=== PATIENT | male | born 1975 | race Caucasian/White ===

== ENCOUNTER 2018-02-12 11:42 | Observation (INO) | payer BC, OTHER ==
[~2018-02-12] VITALS: Ht 172.7 cm; Wt 95.3 kg
--- NOTE | 2018-02-12 11:58 | ED Abdominal Pain ---
General Stated Complaint: ABD PAIN Source of Information: Patient Exam Limitations: No Limitations History of Present Illness Date Seen by Provider: Feb 12, 2018 Time Seen by Provider: 11:55 Initial Comments Sent to ER by private vehicle from urgent care with reports of lower abdominal pain. This began last night at about 8 PM and persisted throughout the night. He has poor appetite but no vomiting. No diarrhea or constipation. No fevers but he does report chills. He denies any dysuria. He states he has a history of left-sided kidney stones which occasionally would cause pain in the left lower abdomen but he states that this pain is actually a bit more midline and in fact on the right side. He is concerned about his appendix. Timing/Duration: 12-24 Hours Severity/Quality: Moderate Location: RLQ, Suprapubic Radiation: No Radiation Activities at Onset: None Allergies and Home Medications Allergies Coded Allergies: No Allergy Information Available (Unverified , 02/12/18) Patient Home Medication List Home Medication List Reviewed: Yes Review of Systems Review of Systems Constitutional: see HPI, chills; No fever EENTM: No Symptoms Reported Respiratory: No Symptoms Reported Cardiovascular: No Symptoms Reported Gastrointestinal: See HPI, Abdominal Pain; Denies Nausea, Denies Vomiting Genitourinary: No Symptoms Reported Musculoskeletal: no symptoms reported Skin: no symptoms reported Psychiatric/Neurological: No Symptoms Reported Endocrine: No Symptoms Reported Physical Exam Vital Signs Vital Signs - First Documented 02/12/18 12:00 Temp 97.4 Pulse 76 Resp 20 B/P (MAP) 142/91 (108) Pulse Ox 97 Capillary Refill : Height/Weight/BMI Height: '" Weight: lbs. oz. kg; BMI Method: General Appearance: WD/WN, no apparent distress HEENT: PERRL/EOMI, normal ENT inspection Neck: non-tender, full range of motion Respiratory: no respiratory distress, no accessory muscle use Cardiovascular: regular rate, rhythm, no murmur Gastrointestinal: normal bowel sounds, soft; No rebound; tenderness ( suprapubic and right lower) Extremities: normal range of motion, non-tender Neurologic/Psychiatric: alert, normal mood/affect, oriented x 3 Skin: normal color, warm/dry Progress/Results/Core Measures Results/Orders Lab Results Laboratory Tests Test 02/12/18 11:57 02/12/18 12:45 Range/Units White Blood Count 19.9 H 4.3-11.0 10^3/uL Red Blood Count 5.24 4.35-5.85 10^6/uL Hemoglobin 15.2 13.3-17.7 G/DL Hematocrit 44 40-54 % Mean Corpuscular Volume 84 80-99 FL Mean Corpuscular Hemoglobin 29 25-34 PG Mean Corpuscular Hemoglobin Concent 34 32-36 G/DL Red Cell Distribution Width 13.3 10.0-14.5 % Platelet Count 328 130-400 10^3/uL Mean Platelet Volume 10.3 7.4-10.4 FL Neutrophils (%) (Auto) 77 H 42-75 % Lymphocytes (%) (Auto) 15 12-44 % Monocytes (%) (Auto) 7 0-12 % Eosinophils (%) (Auto) 1 0-10 % Basophils (%) (Auto) 0 0-10 % Neutrophils # (Auto) 15.3 H 1.8-7.8 X 10^3 Lymphocytes # (Auto) 3.0 1.0-4.0 X 10^3 Monocytes # (Auto) 1.5 H 0.0-1.0 X 10^3 Eosinophils # (Auto) 0.1 0.0-0.3 10^3/uL Basophils # (Auto) 0.1 0.0-0.1 10^3/uL Neutrophils % (Manual) 72 % Lymphocytes % (Manual) 18 % Monocytes % (Manual) 6 % Eosinophils % (Manual) 1 % Basophils % (Manual) 0 % Band Neutrophils 2 % Reactive Lymphocytes 1 % Toxic Granulation 1+ Blood Morphology Comment NORMAL Sodium Level 134 L 135-145 MMOL/L Potassium Level 4.0 3.6-5.0 MMOL/L Chloride Level 101 98-107 MMOL/L Carbon Dioxide Level 23 21-32 MMOL/L Anion Gap 10 5-14 MMOL/L Blood Urea Nitrogen 16 7-18 MG/DL Creatinine 0.97 0.60-1.30 MG/DL Estimat Glomerular Filtration Rate > 60 BUN/Creatinine Ratio 16 Glucose Level 101 70-105 MG/DL Calcium Level 9.1 8.5-10.1 MG/DL Corrected Calcium 8.5-10.1 MG/DL Total Bilirubin 0.8 0.1-1.0 MG/DL Aspartate Amino Transf (AST/SGOT) 20 5-34 U/L Alanine Aminotransferase (ALT/SGPT) 40 0-55 U/L Alkaline Phosphatase 59 40-136 U/L Total Protein 7.9 6.4-8.2 GM/DL Albumin 4.7 H 3.2-4.5 GM/DL Lipase 14 8-78 U/L Urine Color YELLOW Urine Clarity CLEAR Urine pH 5 5-9 Urine Specific [place] 1.015 L 1.016-1.022 Urine Protein NEGATIVE NEGATIVE Urine Glucose (UA) NEGATIVE NEGATIVE Urine Ketones NEGATIVE NEGATIVE Urine Nitrite NEGATIVE NEGATIVE Urine Bilirubin NEGATIVE NEGATIVE Urine Urobilinogen NORMAL NORMAL MG/DL Urine Leukocyte Esterase NEGATIVE NEGATIVE Urine RBC (Auto) NEGATIVE NEGATIVE Urine RBC NONE /HPF Urine WBC NONE /HPF Urine Squamous Epithelial Cells RARE /HPF Urine Crystals NONE /LPF Urine Bacteria NEGATIVE /HPF Urine Casts NONE /LPF Urine Mucus SMALL H /LPF Urine Culture Indicated NO My Orders Orders - ADAM GILLESPIE APRN Cbc With Automated Diff (02/12/18 11:45) Comprehensive Metabolic Panel (02/12/18 11:45) Lipase (02/12/18 11:45) Ua Culture If Indicated (02/12/18 11:45) Iv Heplock-Insert (Order) (02/12/18 11:45) Ct Abdomen/Pelvis W (02/12/18 11:45) Iohexol Injection (Omnipaque 350 Mg/Ml 1 (02/12/18 12:00) Ns (Ivpb) (Sodium Chloride 0.9% Ivpb Bag (02/12/18 12:00) Contrast Received (Contrast Received) (02/12/18 12:00) Fentanyl Injection (Sublimaze Injection (02/12/18 12:00) Manual Differential (02/12/18 11:57) Ns Iv 1000 Ml (Sodium Chloride 0.9%) (02/12/18 12:15) Piperacillin Sodium/Tazobactam (Zosyn Vi (02/12/18 13:00) Ketorolac Injection (Toradol Injection) (02/12/18 13:00) Medications Given in ED Current Medications Medications Dose Ordered Sig/Sherita Route Start Time Stop Time Status Last Admin Dose Admin Fentanyl Citrate 50 mcg ONCE ONCE IVP 02/12/18 12:00 02/12/18 12:01 DC 02/12/18 12:44 50 MCG Iohexol 100 ml ONCE ONCE IV 02/12/18 12:00 02/12/18 12:01 DC 02/12/18 12:28 100 ML Sodium Chloride 100 ml ONCE ONCE IV 02/12/18 12:00 02/12/18 12:01 DC 02/12/18 12:28 80 ML Vital Signs/I&O 02/12/18 12:00 Temp 97.4 Pulse 76 Resp 20 B/P (MAP) 142/91 (108) Pulse Ox 97 Departure Communication (Admissions) Time/Spoke to Admitting Phy: 13:09 Discussed the case with Dr. Zavala. We will admit observation and IV antibiotics and fluids. Impression Primary Impression: Sigmoid diverticulitis Disposition: ADMITTED INPATIENT Condition: Stable Admissions Decision to Admit Reason: Admit from ER (General) Decision to Admit/Date: Feb 12, 2018 Time/Decision to Admit Time: 11:58 Departure-Patient Inst. Referrals: NO,LOCAL PHYSICIAN (PCP) Primary Care Physician ADAM GILLESPIE APRN Feb 12, 2018 11:58
[2018-02-12] MEDS ORDERED: RECEIVED CONTRAST (Hold Metformin) IV SCH (12:00)
[2018-02-12] MEDS ORDERED: NS 100 ML (IVPB) BAG IV ONE (12:00)
[2018-02-12] MEDS ORDERED: IOHEXOL 350 MG/ML 100 ML (OMNIPAQUE 350) VIAL IV ONE (12:00)
[2018-02-12] MEDS ORDERED: fentaNYL INJECTION 100 MCG/2 ML AMP IVP ONE (12:00)
[2018-02-12 12:04] LABS: BASOPHILS # (AUTO) 0.1 10^3/uL (0.0-0.1); BASOPHILS % (AUTO) 0 % (0-10); EOSINOPHILS # (AUTO) 0.1 10^3/uL (0.0-0.3); EOSINOPHILS % (AUTO) 1 % (0-10); HEMATOCRIT 44 % (40-54); HEMOGLOBIN 15.2 G/DL (13.3-17.7); LYMPHOCYTES % (AUTO) 15 % (12-44); MEAN CORPUSCULAR HEMOGLOBIN 29 PG (25-34); MEAN CORPUSCULAR HGB CONC 34 G/DL (32-36); MEAN CORPUSCULAR VOLUME 84 FL (80-99); MEAN PLATELET VOLUME 10.3 FL (7.4-10.4); MONOCYTES # (AUTO) 1.5 X 10^3 (0.0-1.0); MONOCYTES % (AUTO) 7 % (0-12); NEUTROPHILS # (AUTO) 15.3 X 10^3 (1.8-7.8); NEUTROPHILS % (AUTO) 77 % (42-75); PLATELET COUNT 328 10^3/uL (130-400); RED BLOOD COUNT 5.24 10^6/uL (4.35-5.85); RED CELL DISTRIBUTION WIDTH 13.3 % (10.0-14.5); WHITE BLOOD COUNT 19.9 10^3/uL (4.3-11.0)
[2018-02-12] MEDS ORDERED: DEXT30TA12 PO (12:08)
--- OUTSIDE RECORDS SUMMARY | 2018-02-12 12:08 | XMS REPORT ---
Author Author Anum Uribe Organization [facility] Address [address] [place], [place] [id number] Care Team Providers Care Gastroenterology Professor Name Role Phone Anum Uribe PCP Anum Uribe PreferredProvider Allergies and Adverse Reactions Name Reaction Notes NO KNOWN DRUG ALLERGIES Plan of Treatment Not available. Medications Active Name Start Date Estimated Completion Date SIG Comments Adderall 20 mg Oral Tablet 10/28/2017 11/27/2017 take 1 tablet (20 mg) by oral route 2 times per day before breakfast and at noon for 30 days Name Start Date Expiration Date SIG Comments Singulair Oral Tablet 10 mg 08/16/2009 08/30/2009 1 tab BID Ciprofloxacin Oral Tablet 500 mg 08/16/2009 08/23/2009 take 1 tablet (500 mg) by oral route every 12 hours for 7 days amoxicillin 875 mg oral tablet 10/28/2017 11/07/2017 take 1 tablet (875 mg) by oral route every 12 hours for 10 days Discontinued Name Start Date Discontinued Date SIG Comments Adderall XR Oral Capsule, Sust. Release 24 hr 20 mg 05/04/2009 take 1 capsule (20 mg) by oral route once daily in the morning upon awakening Problem List Not available. 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 History Of Immunizations Not available. History of Past Illness Name Date of Onset Comments Attention Deficit Disorder May 04 2009 11:25AM Bronchitis, Acute May 04 2009 11:25AM Cough May 04 2009 11:25AM Sinusitis, Acute Oct 28 2017 9:25AM ADHD (attention deficit hyperactivity disorder), combined type Oct 28 2017 9: 25AM Payers Insurance Name Company Name Plan Name Plan Number Policy Number Policy Group Number Start Date [employer] [id number] N/A [employer] Aetna [id number] Sunday, 2008 History of Encounters Visit Date Visit Type Provider 10/28/2017 Office visit Anum Uribe APRN 05/04/2009 Office visit Ney Willis DO 12/30/2008 Office visit Ney Willis DO
--- OUTSIDE RECORDS SUMMARY | 2018-02-12 12:08 | XMS REPORT | Continuity of Care Document ---
Author Author [facility] Address Unknown Phone Unavailable Allergies There is no data. Medications There is no data. Problems There is no data. Procedures There is no data. Results There is no data. Encounters ACCT No. Visit Date/Time Discharge Status Pt. Type Provider Facility Loc./Unit Complaint [id number] 12/20/2017 10:03:06 12/20/2017 23:59:59 [facility] Outpatient Ney Willis V [id number] 10/28/2017 10:12:51 10/28/2017 23:59:59 [facility] Outpatient Lizabeth Uribe
[2018-02-12] MEDS ORDERED: NS IV 1000 ML 1,000 ML IV SCH (12:15)
[2018-02-12 12:30] LABS: ALANINE AMINOTRANSFERASE 40 U/L (0-55); ALBUMIN 4.7 GM/DL (3.2-4.5); ALKALINE PHOSPHATASE 59 U/L (40-136); BILIRUBIN,TOTAL 0.8 MG/DL (0.1-1.0); BUN/CREATININE RATIO 16; CALCIUM 9.1 MG/DL (8.5-10.1); CARBON DIOXIDE 23 MMOL/L (21-32); CHLORIDE 101 MMOL/L (98-107); CREATININE SERUM 0.97 MG/DL (0.60-1.30); GFR ESTIMATED > 60; GLUCOSE 101 MG/DL (70-105); LIPASE 14 U/L (8-78); SODIUM 134 MMOL/L (135-145); TOTAL PROTEIN 7.9 GM/DL (6.4-8.2)
[2018-02-12 12:37] LABS: BAND NEUTROPHILS 2 %; BASOPHILS % (MANUAL) 0 %; EOSINOPHILS % (MANUAL) 1 %; LYMPHOCYTES % (MANUAL) 18 %; MONOCYTES % (MANUAL) 6 %; NEUTROPHILS % (MANUAL) 72 %; RBC MORPH NORMAL; REACTIVE LYMPHOCYTES 1 %; TOXIC GRANULATION/VACUOLAZATIO 1+
[2018-02-12 12:53] LABS: BILIRUBIN,URINE NEGATIVE (NEGATIVE); CLARITY,URINE CLEAR; COLOR,URINE YELLOW; GLUCOSE, URINE (UA) NEGATIVE (NEGATIVE); KETONES,URINE NEGATIVE (NEGATIVE); LEUKOCYTE ESTERASE ,URINE NEGATIVE (NEGATIVE); NITRITE,URINE NEGATIVE (NEGATIVE); PH,URINE 5 (5-9); PROTEIN,URINE NEGATIVE (NEGATIVE); UROBILINOGEN,URINE NORMAL (NORMAL)
--- NOTE | 2018-02-12 12:59 | Diagnostic Imaging Report ---
PROCEDURE: CT abdomen and pelvis with contrast. TECHNIQUE: Multiple contiguous axial images were obtained through the abdomen and pelvis after administration of intravenous contrast. INDICATION: Pain. FINDINGS: The findings are most consistent with focal sigmoid diverticulitis in the left lower quadrant at the proximal to mid third of the sigmoid colon. There is substantial perisigmoidal edema and regional inflammation but no abscess or drainable fluid collection and no free air or extraluminal gas to suggest a transmural perforation. There is no resultant bowel obstruction. The appendix is normal. No other segmental inflammatory process to the hollow viscus. The liver, gallbladder, spleen, adrenals, pancreas, and kidneys are all nonacute. IMPRESSION: Sigmoid diverticulitis without resultant obstruction, abscess, or findings of transmural perforation. Dictated by: Dictated on workstation # [id number]
[2018-02-12] MEDS ORDERED: KETOROLAC 30 MG/ML VIAL IVP ONE (13:00)
[2018-02-12] MEDS ORDERED: PIPERACILLIN SODIUM/TAZOBACTAM 4.5 GM in NS (IVPB) 100 ML IV ONE (13:00)
[2018-02-12 13:07] LABS: BACTERIA,URINE NEGATIVE /HPF; SQUAMOUS EPITHELIAL CELL,UR RARE /HPF
--- NOTE | 2018-02-12 13:18 | NUR ---
Dr Zavala in room with pt.
--- OUTSIDE RECORDS SUMMARY | 2018-02-12 13:36 | XMS REPORT | Continuity of Care Document ---
Author Author [facility] Address Unknown Phone Unavailable Allergies There is no data. Medications There is no data. Problems There is no data. Procedures There is no data. Results There is no data. Encounters ACCT No. Visit Date/Time Discharge Status Pt. Type Provider Facility Loc./Unit Complaint [id number] 12/20/2017 10:03:06 12/20/2017 23:59:59 [facility] Outpatient Ney Willis V [id number] 10/28/2017 10:12:51 10/28/2017 23:59:59 [facility] Outpatient Lizabeth Uribe
[2018-02-12 13:50] VITALS: BP 137/73
--- NOTE | 2018-02-12 13:54 | NUR ---
KEILY BEARDEN admitted to room 423-1, with an admitting diagnosis of SIGMOID DIVERTICULITIS, on 02/12/18 from ER via W/C, accompanied by BROTHER AND ER STAFF.KEILY BEARDEN introduced to surroundings, call light, bed controls, phone, TV, temperature control, lights, meal times, smoking policy, visitor policy, side rail policy, bathrooms and showers. Patient Rights given to patient in the handbook. KEILY BEARDEN verbalizes understanding that [facility] is not responsible for the loss or damage to any personal effects or valuables that are kept in the patients posession during their hospitalization. The following Patient Care Plans were discussed with the PT: Discharge Planning, DIARRHEA, FOL VOL DEFICIT, AND PAIN. KEILY BEARDEN verbalizes understanding of Interdisciplinary Patient Education. Patient and/or family were informed about the Rapid Response Team and its purpose. PT CAME TO FLOOR FROM ER W/ IV IN R AC
[2018-02-12] MEDS ORDERED: ONDANSETRON 4 MG/2 ML (SDV) Z0FRAN IV PRN (14:00)
[2018-02-12] MEDS ORDERED: CATHETER FLUSH 10 ML SYR IV PRN (14:15)
--- NOTE | 2018-02-12 14:22 | History & Physical-Surgical ---
History of Present Illness History of Present Illness Reason for visit/HPI HPI per ED: Sent to ER by private vehicle from urgent care with reports of lower abdominal pain. This began last night at about 8 PM and persisted throughout the night. He has poor appetite but no vomiting. No diarrhea or constipation. No fevers but he does report chills. He denies any dysuria. He states he has a history of left-sided kidney stones which occasionally would cause pain in the left lower abdomen but he states that this pain is actually a bit more midline and in fact on the right side. He is concerned about his appendix. Timing/Duration: 12-24 Hours Severity/Quality: Moderate Location: RLQ, Suprapubic Radiation: No Radiation Activities at Onset: None Pt states he has never had pain like this before and nothing helped the pain. He describe a constant sharp pain with no radiation of the pain. He stated couldn't get any sleep because of the pain. Date of Admission Feb 12, 2018 at 13:17 Date Seen by a Provider: Feb 12, 2018 Time Seen by a Provider: 13:02 I consulted on this patient on 02/12/18 14:16 Attending Physician Jagjit Zavala DO Admitting Physician No,Local Physician Consult Allergies and Home Medications Allergies Coded Allergies: No Known Drug Allergies (Unverified , 02/12/18) Patient Home Medication List Home Medication List Reviewed: Yes Past Fehfcuw-Pnlreb-Pbpiwn Hx Patient Social History Alcohol Use: Denies Use Recreational Drug Use: No Smoking Status: Never a Smoker Recent Foreign Travel: No Contact w/Someone Who Travel: No Recent Infectious Disease Expo: No Recent Hopitalizations: No Seasonal Allergies Seasonal Allergies: No Surgeries History of Surgeries: Yes (acl repair) Surgeries: Orthopedic Respiratory History of Respiratory Disorde: No Cardiovascular History of Cardiac Disorders: No Neurological History of Neurological Disord: No Genitourinary History of Genitourinary Disor: Yes Genitourinary Disorders: Kidney Stones Gastrointestinal History of Gastrointestinal Di: No Musculoskeletal History of Musculoskeletal Dis: No Endocrine History of Endocrine Disorders: No HEENT History of HEENT Disorders: No Cancer History of Cancer: No Psychosocial History of Psychiatric Problem: No Integumentary History of Skin or Integumenta: No Family Medical History Significant Family History: CAD Under 55 Years Old (brother), Diabetes (mother) Review of Systems Constitutional: No chills, No diaphoresis; malaise EENTM: No blurred vision, No double vision, No mouth swelling, No epistaxis, No throat swelling Respiratory: No cough, No dyspnea on exertion, No hemoptysis Cardiovascular: No chest pain, No edema, No palpitations Gastrointestinal: abdominal pain; No diarrhea, No hematemesis, No jaundice, No melena Genitourinary: No dysuria, No frequency, No hematuria Musculoskeletal: No joint pain, No joint swelling, No muscle pain, No muscle stiffness Skin: No change in color, No change in hair/nails Psychiatric/Neurological: Denies Anxiety, Denies Depressed, Denies Headache, Denies Tremors pt denies any history of abnormal bruising or bleeding, denies heat or cold intolerance Physical Exam Vital Signs Vital Signs - First Documented 02/12/18 12:00 Temp 97.4 Pulse 76 Resp 20 B/P (MAP) 142/91 (108) Pulse Ox 97 Capillary Refill : Less Than 3 Seconds Height, Weight, BMI Height: 5'8.00" Weight: 210lbs. oz. 95.858588mz; BMI Method:Stated General Appearance: WD/WN, Mild Distress Eyes: Bilateral Eye PERRL, Bilateral Eye EOMI HEENT: Pharynx Normal, Moist Mucous Membranes; No Pale Conjunctivae (L), No Pale Conjunctivae (R) Neck: Full Range of Motion, Normal Inspection, Non Tender, Supple Respiratory: Chest Non Tender, Lungs Clear, Normal Breath Sounds, No Accessory Muscle Use, No Respiratory Distress Cardiovascular: Regular Rate, Rhythm, No Edema, No Murmur Gastrointestinal: Normal Bowel Sounds, No Organomegaly, No Pulsatile Mass, Soft , Tenderness (suprapubically) Rectal: Deferred Back: No CVA Tenderness, No Vertebral Tenderness Extremity: Normal Capillary Refill, Normal Inspection, Normal Range of Motion, Non Tender, No Calf Tenderness, No Pedal Edema Neurologic/Psychiatric: Alert, Oriented x3, No Motor/Sensory Deficits, Normal Mood/Affect, economic manager II-XII Norm as Tested Skin: Normal Color, Warm/Dry Lymphatic: No Adenopathy (neck, axilla or groin) Data Review Labs Laboratory Tests 02/12/18 11:57: White Blood Count 19.9H, Red Blood Count 5.24, Hemoglobin 15.2, Hematocrit 44, Mean Corpuscular Volume 84, Mean Corpuscular Hemoglobin 29, Mean Corpuscular Hemoglobin Concent 34, Red Cell Distribution Width 13.3, Platelet Count 328, Mean Platelet Volume 10.3, Neutrophils (%) (Auto) 77H, Lymphocytes (%) (Auto) 15 , Monocytes (%) (Auto) 7, Eosinophils (%) (Auto) 1, Basophils (%) (Auto) 0, Neutrophils # (Auto) 15.3H, Lymphocytes # (Auto) 3.0, Monocytes # (Auto) 1.5H, Eosinophils # (Auto) 0.1, Basophils # (Auto) 0.1, Neutrophils % (Manual) 72, Lymphocytes % (Manual) 18, Monocytes % (Manual) 6, Eosinophils % (Manual) 1, Basophils % (Manual) 0, Band Neutrophils 2, Reactive Lymphocytes 1, Toxic Granulation 1+, Blood Morphology Comment NORMAL, Sodium Level 134L, Potassium Level 4.0, Chloride Level 101, Carbon Dioxide Level 23, Anion Gap 10, Blood Urea Nitrogen 16, Creatinine 0.97, Estimat Glomerular Filtration Rate > 60, BUN/ Creatinine Ratio 16, Glucose Level 101, Calcium Level 9.1, Corrected Calcium , Total Bilirubin 0.8, Aspartate Amino Transf (AST/SGOT) 20, Alanine Aminotransferase (ALT/SGPT) 40, Alkaline Phosphatase 59, Total Protein 7.9, Albumin 4.7H, Lipase 14 02/12/18 12:45: Urine Color YELLOW, Urine Clarity CLEAR, Urine pH 5, Urine Specific [place] 1.015L, Urine Protein NEGATIVE, Urine Glucose (UA) NEGATIVE, Urine Ketones NEGATIVE, Urine Nitrite NEGATIVE, Urine Bilirubin NEGATIVE, Urine Urobilinogen NORMAL, Urine Leukocyte Esterase NEGATIVE, Urine RBC (Auto) NEGATIVE, Urine RBC NONE, Urine WBC NONE, Urine Squamous Epithelial Cells RARE, Urine Crystals NONE , Urine Bacteria NEGATIVE, Urine Casts NONE, Urine Mucus SMALLH, Urine Culture Indicated NO Assessment/Plan Assessment/Plan Admission Diagonsis Acute Sigmoid Diverticulitis Admission Status: Observation Assessment/Plan Acute Sigmoid Diverticulitis Plan is to admit pt for observation, NPO, IV fluids, IV ABX, pain control, anti- emetics and recheck labs. As long as pt's WBC is trending down and pain is improving we can then increase diet and finally send home. I had a long discussion with the pt. and went over normal progression of Diverticulitis, indications for surgery, diet going forward and other aspects of Diverticulitis. All questions answered to his satisfaction. JAGJIT ZAVALA DO Feb 12, 2018 14:22
[2018-02-12] MEDS: LACTATED RINGERS 1,000 ML IV SCH ×2 (14:26→19:57)
[2018-02-12] MEDS ORDERED: IBUP-30 PO (15:15)
[2018-02-12 16:00] VITALS: BP 103/56
[2018-02-12] MEDS: fentaNYL INJECTION 100 MCG/2 ML AMP IV PRN ×3 (16:57→21:59)
[2018-02-12] MEDS: PIPERACILLIN/TAZO 4.5 GM/NS 100 ML IV SCH ×2 (18:27)
[2018-02-12] MEDS: KETOROLAC 15 MG/ML VIAL IV PRN (18:34)
[2018-02-12 20:00] VITALS: BP 112/61
[2018-02-13] VITALS: BP 114/59
[2018-02-13] MEDS: fentaNYL INJECTION 100 MCG/2 ML AMP IV PRN ×3 (00:10→06:04)
[2018-02-13] MEDS: PIPERACILLIN/TAZO 4.5 GM/NS 100 ML IV SCH ×6 (02:09→17:03)
[2018-02-13] MEDS: LACTATED RINGERS 1,000 ML IV SCH ×3 (03:30→16:20)
[2018-02-13 04:00] VITALS: BP 109/61
[2018-02-13 06:30] LABS: BASOPHILS % (AUTO) 0 % (0-10); EOSINOPHILS # (AUTO) 0.1 10^3/uL (0.0-0.3); EOSINOPHILS % (AUTO) 1 % (0-10); HEMATOCRIT 40 % (40-54); HEMOGLOBIN 13.2 G/DL (13.3-17.7); LYMPHOCYTES # (AUTO) 2.4 X 10^3 (1.0-4.0); LYMPHOCYTES % (AUTO) 17 % (12-44); MEAN CORPUSCULAR HEMOGLOBIN 28 PG (25-34); MEAN CORPUSCULAR HGB CONC 33 G/DL (32-36); MEAN CORPUSCULAR VOLUME 85 FL (80-99); MEAN PLATELET VOLUME 10.7 FL (7.4-10.4); MONOCYTES # (AUTO) 1.3 X 10^3 (0.0-1.0); MONOCYTES % (AUTO) 9 % (0-12); NEUTROPHILS # (AUTO) 10.2 X 10^3 (1.8-7.8); NEUTROPHILS % (AUTO) 72 % (42-75); PLATELET COUNT 274 10^3/uL (130-400); RED BLOOD COUNT 4.68 10^6/uL (4.35-5.85); RED CELL DISTRIBUTION WIDTH 13.2 % (10.0-14.5); WHITE BLOOD COUNT 14.1 10^3/uL (4.3-11.0)
[2018-02-13 07:10] LABS: ALANINE AMINOTRANSFERASE 31 U/L (0-55); ALBUMIN 3.8 GM/DL (3.2-4.5); ALKALINE PHOSPHATASE 51 U/L (40-136); BILIRUBIN,TOTAL 1.4 MG/DL (0.1-1.0); BUN/CREATININE RATIO 15; CALCIUM 8.3 MG/DL (8.5-10.1); CARBON DIOXIDE 22 MMOL/L (21-32); CHLORIDE 106 MMOL/L (98-107); CREATININE SERUM 0.93 MG/DL (0.60-1.30); GFR ESTIMATED > 60; GLUCOSE 103 MG/DL (70-105); POTASSIUM 3.8 MMOL/L (3.6-5.0); SODIUM 138 MMOL/L (135-145); TOTAL PROTEIN 6.4 GM/DL (6.4-8.2)
[2018-02-13 08:31] VITALS: BP 114/73
[2018-02-13] MEDS: KETOROLAC 15 MG/ML VIAL IV PRN (08:40)
[2018-02-13 12:00] VITALS: BP 109/74
--- NOTE | 2018-02-13 15:05 | Progress Note ---
Subjective Time Seen by a Provider: 11:26 Subjective/Events-last exam Pt seen and examined, states his pain is better "only a 3 out of 10 now". He is hungry and states he feels better than yesterday. Denies N/V Review of Systems General: No Chills, No Night Sweats Pulmonary: No Dyspnea, No Cough Cardiovascular: No: Chest Pain, Palpitations Gastrointestinal: Abdominal Pain; No: Diarrhea Genitourinary: No Dysuria, No Frequency Objective Exam Vital Signs Date Time Temp Pulse Resp B/P (MAP) Pulse Ox O2 Delivery O2 Flow Rate FiO2 02/13/18 08:31 99.2 72 18 114/73 (87) 96 Room Air 02/13/18 08:00 96 Room Air 02/13/18 04:00 98.3 70 16 109/61 (77) 95 Room Air 02/13/18 00:00 98.8 74 18 114/59 (77) 95 Room Air 02/12/18 20:00 99.0 72 18 112/61 (78) 95 Room Air 02/12/18 17:30 98.5 02/12/18 16:57 98.5 02/12/18 16:00 98.4 73 18 103/56 (72) 96 Room Air 02/12/18 15:04 98.5 72 14 132/76 (94) 96 Room Air I & O 02/13/18 07:00 Intake Total 1200 ml Balance 1200 ml Capillary Refill : Less Than 3 Seconds General Appearance: No Apparent Distress, WD/WN HEENT: Pharynx Normal, Moist Mucous Membranes; No Pale Conjunctivae (L), No Pale Conjunctivae (R) Respiratory: Chest Non Tender, Lungs Clear, Normal Breath Sounds, No Accessory Muscle Use, No Respiratory Distress Cardiovascular: Regular Rate, Rhythm, No Edema, No Murmur Gastrointestinal: normal bowel sounds, soft; No rebound; tenderness ( suprapubic mostlu) Extremity: No Calf Tenderness, No Pedal Edema Neurologic/Psychiatric: Alert, Oriented x3, battery container tester II-XII Norm as Tested Skin: Normal Color, Warm/Dry Lymphatic: No Adenopathy (neck, axilla or groin) Results Lab Laboratory Tests 02/13/18 05:55: White Blood Count 14.1H, Red Blood Count 4.68, Hemoglobin 13.2L, Hematocrit 40, Mean Corpuscular Volume 85, Mean Corpuscular Hemoglobin 28, Mean Corpuscular Hemoglobin Concent 33, Red Cell Distribution Width 13.2, Platelet Count 274, Mean Platelet Volume 10.7H, Neutrophils (%) (Auto) 72, Lymphocytes (%) (Auto) 17 , Monocytes (%) (Auto) 9, Eosinophils (%) (Auto) 1, Basophils (%) (Auto) 0, Neutrophils # (Auto) 10.2H, Lymphocytes # (Auto) 2.4, Monocytes # (Auto) 1.3H, Eosinophils # (Auto) 0.1, Basophils # (Auto) 0.0, Sodium Level 138, Potassium Level 3.8, Chloride Level 106, Carbon Dioxide Level 22, Anion Gap 10, Blood Urea Nitrogen 14, Creatinine 0.93, Estimat Glomerular Filtration Rate > 60, BUN/ Creatinine Ratio 15, Glucose Level 103, Calcium Level 8.3L, Corrected Calcium 8.5, Total Bilirubin 1.4H, Aspartate Amino Transf (AST/SGOT) 19, Alanine Aminotransferase (ALT/SGPT) 31, Alkaline Phosphatase 51, Total Protein 6.4, Albumin 3.8 Assessment/Plan Assessment/Plan Assessment/Plan Acute Sigmoid Diverticulitis Will start clear liquid diet and continue IV fluids, switch to PO ABX. Pt not really taking any pain meds or anti-emetics> The recheck of his labs show a decrease in his WBC. Will send home if he tolerates diet and does not have increased abdominal pain. I did go over the things he would need to do at home and diet to try and avoid another episode like this. We also discussed going early for treatment if he has pain and he can see me if he has any problems. Clinical Quality Measures DVT/VTE Risk/Contraindication: Risk Factor Score Per Nursin RFS Level Per Nursing on Admit: 2=Moderate ALEX OKEEFE DO Feb 13, 2018 15:05
[2018-02-13 16:00] VITALS: BP 107/59
[2018-02-13] MEDS ORDERED: AUGMENTIN 875 MG TAB (AMOXICILLIN/CLAVULANATE) PO SCH (17:00)
[2018-02-13] MEDS ORDERED: AMOX1TAB12 PO (17:40)
--- NOTE | 2018-02-13 17:43 | Discharge Inst-Surgical ---
Discharge Inst-Surgical Depart Medication/Instructions New, Converted or Re-Newed RX: Transmitted to Pharmacy Patient Instructions Follow up Appt: Make appointment for 2-3 weeks; unless you are having no problems. Symptoms to Report: Appetite Changes, Extremity Discoloration, Numbness/Tingling, Swelling Increased , Bleeding Excessive, Eyesight Changes, Pain Increased, Urine Color Change, Constipation(Persistent), Fever over 101 degree F, Pain/Pressure in chest, Urinating Difficulty, Cough Up/Vomit Blood, Heart Beat Irreg/Pounding, Pain/ Pressure in jaw, Cramps in feet or legs, Lightheadedness, Pain/Pressure in shoulder, Diarrhea(Persistent), Memory Changes Suddenly, Questions/Concerns, Weight gain consecutive days, Dizziness/Fainting, Nausea/Vomiting, Shortness of Breath, Weight gain over 2 pounds If questions or concerns contact your physician Or seek help at emergency department. Activity Activity as Tolerated: Yes Driving Instructions: You May Drive Diet Discharge Diet: Liquid Diet (for 2 or 3 days then slowly increase to soft diet. ), Low Residue (and high fiber once eating normally, avoid red meat) If Any Problems/Questions/Issu: Contact Your Physician, Go to Emergency Room Skin/Wound Care Infection Signs and Symptoms: Skin Itchy or Has a Rash, Increased Swelling, Temperature Above 101 F Bathing Instructions: ALEX Mckeon DO Feb 13, 2018 17:43
== END 2018-02-13 18:15 | disposition home or self-care (01) ==
LOC: EDUNIT# 11:42 → ER 11:43 → 4TH 13:17
PROVIDERS: ADMIT Surgery; ATTEND Surgery
DX: K57.32 Diverticulitis of large intestine without perforation or abscess without bleeding (principal); Z87.442 Personal history of urinary calculi
CPT/HCPCS: 36415; 74177; 80053; 81000; 83690; 85007; 85025; 85027; 96374; 96375

== ENCOUNTER → 2020-01-25 | Outpatient (CLI) | payer BC ==
[~2020-01-25] MED LIST: AMOX1TAB12 PO; DEXT30TA12 PO; IBUP-30 PO
--- NOTE | 2020-01-25 16:13 | Diagnostic Imaging Report ---
PROCEDURE: CT abdomen and pelvis without contrast. TECHNIQUE: Multiple contiguous axial images were obtained through the abdomen and pelvis without the use of intravenous contrast. Auto Exposure Controls were utilized during the CT exam to meet ALARA standards for radiation dose reduction. INDICATION: Left lower quadrant pain The previous CT abdomen/pelvis exam of 02/12/2018 noted sigmoid diverticulitis but failed to show any evidence for obstruction abscess or transmural perforation. On this exam there are again numerous diverticula involving the sigmoid and descending colon. However there is no significant distortion of the pericolonic fat to suggest acute diverticulitis. There is no pelvic mass or free fluid collection identified either. The appendix was visualized and is not abnormally thickened. The urinary bladder and prostate gland are grossly unremarkable. There is no sign of nephrolithiasis or urolithiasis and the kidneys do not appear obstructed. The liver, spleen, pancreas, adrenals, gallbladder, aorta and inferior vena cava show no sign of an acute abnormality. The stomach is partially filled with fluid and consequently difficult to assess. The lung bases are clear. IMPRESSION: 1. There is diverticulosis of the sigmoid and descending colon but there is no evidence for recurrent diverticulitis. 2. There is no acute abnormality of the abdomen or pelvis noted otherwise. Dictated by: Dictated on workstation # [id number]
== END ==
LOC: RAD 13:45
PROVIDERS: ATTEND Urology
DX: K57.30 Diverticulosis of large intestine without perforation or abscess without bleeding (principal); Z87.442 Personal history of urinary calculi
CPT/HCPCS: 74176

== ENCOUNTER → 2020-11-18 | Outpatient (CLI) | payer BC ==
--- NOTE | 2020-11-18 15:44 | Diagnostic Imaging Report ---
TECHNIQUE: Focused ultrasound was performed in the soft tissues overlying the posterior calvarium. REASON FOR EXAM: Lung at the base of the skull on the right. COMPARISON: None. FINDINGS: A well-circumscribed isoechoic mass is seen in the area of palpable abnormality at the skull base right of midline measuring 4.2 x 1.3 x 3.4 cm. No flow is seen within this mass. IMPRESSION: Well-circumscribed benign-appearing mass in the area of palpable abnormality at the skull base right of midline. Findings may represent a lipoma. If indicated, CT of the neck could be considered to further characterize. Dictated by: Dictated on workstation # [id number]
== END ==
LOC: RAD 14:30
PROVIDERS: ATTEND Nurse Practitioner Family
DX: R93.0 Abnormal findings on diagnostic imaging of skull and head, not elsewhere classified (principal)
CPT/HCPCS: 76536

== ENCOUNTER 2021-03-10 23:36 | Emergency (ER) | payer BC ==
[~2021-03-10] VITALS: Ht 172.7 cm; Wt 95.3 kg
[2021-03-10 23:50] VITALS: BP 117/82
[2021-03-11] MEDS ORDERED: fentaNYL INJ 100 MCG/2 ML AMP IVP ONE (00:15)
[2021-03-11 00:24] LABS: BASOPHILS # (AUTO) 0.1 10^3/uL (0.0-0.1); BASOPHILS % (AUTO) 1 % (0-10); EOSINOPHILS # (AUTO) 0.3 10^3/uL (0.0-0.3); EOSINOPHILS % (AUTO) 1 % (0-10); HEMATOCRIT 44 % (40-54); HEMOGLOBIN 14.8 g/dL (13.3-17.7); LYMPHOCYTES # (AUTO) 5.4 10^3/uL (1.0-4.0); LYMPHOCYTES % (AUTO) 28 % (12-44); MEAN CORPUSCULAR HEMOGLOBIN 29 pg (25-34); MEAN CORPUSCULAR HGB CONC 34 g/dL (32-36); MEAN CORPUSCULAR VOLUME 87 fL (80-99); MEAN PLATELET VOLUME 10.6 fL (9.0-12.2); MONOCYTES # (AUTO) 1.3 10^3/uL (0.0-1.0); MONOCYTES % (AUTO) 7 % (0-12); NEUTROPHILS # (AUTO) 11.8 10^3/uL (1.8-7.8); NEUTROPHILS % (AUTO) 61 % (42-75); PLATELET COUNT 388 10^3/uL (130-400); WHITE BLOOD COUNT 19.3 10^3/uL (4.3-11.0)
[2021-03-11] MEDS ORDERED: LACTATED RINGERS 1,000 ML IV ONE (00:30)
--- NOTE | 2021-03-11 00:34 | ED Abdominal Pain ---
General Chief Complaint: Abdominal/GI Problems Stated Complaint: LEFT SIDE ABD PAIN Nursing Triage Note: Pt arrives via POV from home for c/o left sided ABD pain et flank pain; onset 24hrs ago. Pt reports hx of kidney stones et diverticulitis. Pt denies urinary changes, denies N/V. Source of Information: Patient Exam Limitations: No Limitations History of Present Illness Date Seen by Provider: Mar 11, 2021 Time Seen by Provider: 00:17 Initial Comments Patient to the ER by private conveyance chief complaint since yesterday he has been having some progressively worsening left flank pain. He has had diverticulitis as well as kidney stones in the past. He states this feels nothing like a kidney stone. Pain is moderate. He has not taken any pain medicine and was just been getting through it at work but decided the pain was too great to get to sleep tonight and so he thought he should come out and get it checked out. He had a bowel movement just prior to coming out a few hours ago and said it was normal, formed, nonbloody. No nausea or vomiting. No abdominal surgeries or trauma. A little bit of a sore throat. No dysuria pyuria hematuria or discharge Allergies and Home Medications Allergies Coded Allergies: No Known Drug Allergies (Unverified , 02/12/18) Patient Home Medication List Home Medication List Reviewed: Yes Amoxicillin/Potassium Clav (Amox Tr-K Clv 875-125 mg Tab) 1 Each Tablet, 875 MG PO BID WITH MEALS Prescribed by: ALEX OKEEFE on 02/13/18 1740 Dextroamphetamine/Amphetamine (Amphetamine Salts 30 mg Tablet) 30 Mg Tablet, 30 MG PO BID PRN for ATTENTION, (Reported) Entered as Reported by: SAMAN LANGFORD on 02/12/18 1208 Ibuprofen (Advil) 200 Mg Tablet, 400 MG PO Q8H PRN for PAIN-MILD, (Reported) Entered as Reported by: TOR RIDDLE on 02/12/18 1515 Review of Systems Review of Systems Constitutional: No chills, No diaphoresis EENTM: No Blurred Vision, No Double Vision Respiratory: Denies Cough, Denies Orthopnea Cardiovascular: Denies Chest Pain, Denies Lightheadedness Gastrointestinal: Abdominal Pain; Denies Constipated, Denies Diarrhea, Denies Nausea, Denies Vomiting Genitourinary: Denies Burning, Denies Discharge, Denies Drainage, Denies Frequency; Flank Pain Musculoskeletal: No back pain, No joint pain Psychiatric/Neurological: Denies Anxiety, Denies Depressed All Other Systems Reviewed Negative Unless Noted: Yes Past Ativcfg-Oegxbu-Nupfte Hx Patient Social History Tobacco Use?: No Use of E-Cig and/or Vaping dev: No Substance use?: No Alcohol Use?: No Pt feels they are or have been: No Immunizations Up To Date Influenza Vaccine Up-to-Date: Yes; Up-to-Date Seasonal Allergies Seasonal Allergies: No Past Medical History Surgeries: Yes (acl repair) Orthopedic Respiratory: No Cardiac: No Neurological: No Genitourinary: Yes Kidney Stones Gastrointestinal: No Musculoskeletal: No Endocrine: No HEENT: No Cancer: No Psychosocial: No Integumentary: No Family Medical History CAD Under 55 Years Old, Diabetes Physical Exam Vital Signs Vital Signs - First Documented 03/10/21 23:50 Temp 36.8 Pulse 73 Resp 18 B/P (MAP) 117/82 (94) Pulse Ox 98 O2 Delivery Room Air Capillary Refill : Less Than 3 Seconds Height/Weight/BMI Height: 5'8.00" Weight: 210lbs. 0.0oz. 95.638234nt; 31.00 BMI Method:Stated General Appearance: WD/WN, no apparent distress HEENT: PERRL/EOMI, normal ENT inspection, pharynx normal Neck: full range of motion, supple, normal inspection Respiratory: lungs clear, normal breath sounds, no respiratory distress, no accessory muscle use Cardiovascular: normal peripheral pulses, regular rate, rhythm, no murmur Peripheral Pulses: 2+ Radial Pulses (R), 2+ Radial Pulses (L) Gastrointestinal: normal bowel sounds, non tender, soft, no organomegaly, no pulsatile mass, tenderness (Left flank) Extremities: normal inspection, normal capillary refill Back: normal inspection, no CVA tenderness Neurologic/Psychiatric: alert, normal mood/affect, oriented x 3 Skin: normal color, warm/dry Progress/Results/Core Measures Results/Orders Lab Results Laboratory Tests Test 03/11/21 00:00 03/11/21 01:20 Range/Units White Blood Count 19.3 H 4.3-11.0 10^3/uL Red Blood Count 5.07 4.30-5.52 10^6/uL Hemoglobin 14.8 13.3-17.7 g/dL Hematocrit 44 40-54 % Mean Corpuscular Volume 87 80-99 fL Mean Corpuscular Hemoglobin 29 25-34 pg Mean Corpuscular Hemoglobin Concent 34 32-36 g/dL Red Cell Distribution Width 12.6 10.0-14.5 % Platelet Count 388 130-400 10^3/uL Mean Platelet Volume 10.6 9.0-12.2 fL Immature Granulocyte % (Auto) 2 % Neutrophils (%) (Auto) 61 42-75 % Lymphocytes (%) (Auto) 28 12-44 % Monocytes (%) (Auto) 7 0-12 % Eosinophils (%) (Auto) 1 0-10 % Basophils (%) (Auto) 1 0-10 % Neutrophils # (Auto) 11.8 H 1.8-7.8 10^3/uL Lymphocytes # (Auto) 5.4 H 1.0-4.0 10^3/uL Monocytes # (Auto) 1.3 H 0.0-1.0 10^3/uL Eosinophils # (Auto) 0.3 0.0-0.3 10^3/uL Basophils # (Auto) 0.1 0.0-0.1 10^3/uL Immature Granulocyte # (Auto) 0.4 H 0.0-0.1 10^3/uL Neutrophils % (Manual) 71 % Lymphocytes % (Manual) 23 % Monocytes % (Manual) 5 % Eosinophils % (Manual) 1 % Sodium Level 136 135-145 MMOL/L Potassium Level 3.8 3.6-5.0 MMOL/L Chloride Level 104 98-107 MMOL/L Carbon Dioxide Level 18 L 21-32 MMOL/L Anion Gap 14 5-14 MMOL/L Blood Urea Nitrogen 27 H 7-18 MG/DL Creatinine 0.92 0.60-1.30 MG/DL Estimat Glomerular Filtration Rate 104 BUN/Creatinine Ratio 29 Glucose Level 103 70-105 MG/DL Calcium Level 8.7 8.5-10.1 MG/DL Corrected Calcium 8.8 8.5-10.1 MG/DL Total Bilirubin 0.3 0.1-1.0 MG/DL Aspartate Amino Transf (AST/SGOT) 23 5-34 U/L Alanine Aminotransferase (ALT/SGPT) 41 0-55 U/L Alkaline Phosphatase 62 40-136 U/L C-Reactive Protein High Sensitivity 2.35 H 0.00-0.50 MG/DL Total Protein 7.5 6.4-8.2 GM/DL Albumin 3.9 3.2-4.5 GM/DL Lipase 32 8-78 U/L Monoscreen NEGATIVE NEGATIVE Urine Color YELLOW Urine Clarity CLEAR Urine pH 6.0 5-9 Urine Specific [place] >=1.030 1.016-1.022 Urine Protein NEGATIVE NEGATIVE Urine Glucose (UA) NEGATIVE NEGATIVE Urine Ketones NEGATIVE NEGATIVE Urine Nitrite NEGATIVE NEGATIVE Urine Bilirubin NEGATIVE NEGATIVE Urine Urobilinogen 0.2 < = 1.0 MG/DL Urine Leukocyte Esterase NEGATIVE NEGATIVE Urine RBC (Auto) NEGATIVE NEGATIVE Urine RBC NONE /HPF Urine WBC NONE /HPF Urine Crystals NONE /LPF Urine Bacteria NEGATIVE /HPF Urine Casts NONE /LPF Urine Mucus NEGATIVE /LPF Urine Culture Indicated NO My Orders Orders - MEAGAN HDEZ Ua Culture If Indicated (03/10/21 23:55) Fentanyl Inj (Sublimaze Injection) (03/11/21 00:15) Cbc With Automated Diff (03/11/21 00:12) Comprehensive Metabolic Panel (03/11/21 00:12) Hs C Reactive Protein (03/11/21 00:12) Lipase (03/11/21 00:12) Ed Iv/Invasive Line Start (03/11/21 00:18) Lactated Ringers (Lr 1000 Ml Iv Solution (03/11/21 00:30) Manual Differential (03/11/21 00:00) Monotest (03/11/21 00:39) Medications Given in ED Current Medications Medications Dose Ordered Sig/Sherita Route Start Time Stop Time Status Last Admin Dose Admin Fentanyl Citrate 50 mcg ONCE ONCE IVP 03/11/21 00:15 03/11/21 00:16 DC 03/11/21 00:35 50 MCG Lactated Ringer's 1,000 ml @ 0 mls/hr Q0M ONCE IV 03/11/21 00:30 03/11/21 00:31 DC 03/11/21 00:35 1,000 MLS/HR Vital Signs/I&O 03/10/21 23:50 Temp 36.8 Pulse 73 Resp 18 B/P (MAP) 117/82 (94) Pulse Ox 98 O2 Delivery Room Air 2 Blood Pressure Mean: 94 Progress Progress Note #1: Time: 00:44 Progress Note Patient does not seem to be in acute enough pain to be experiencing a kidney stone. UTI pyelonephritis possibly still get some urine. We will get some labs. He has aseptic vital signs. We will little pain medicine 50 mcg of fentanyl. His abdomen is soft nontender with no mesenteric signs. Diverticulitis is possible but is probably pretty mild and if his blood work is unremarkable, vitals are unremarkable and clinical exam remains unremarkable we could probably is put him on some antibiotics and have him follow-up outpatient. Progress Note #2: Time: 02:02 Progress Note Patient did produce some urine which was unremarkable. Most likely he is having another bout of diverticulitis albeit mild symptoms with an aseptic vital signs, nonsurgical abdominal exam on reexamination. We discussed outpatient treatment and he is all for this. We will provide him with a gram of Rocephin, outpatient antibiotics, take-home pack of hydrocodone and a shot of Toradol. Departure Impression Primary Impression: Diverticulitis of intestine Qualified Codes: K57.92 - Diverticulitis of intestine, part unspecified, w ithout perforation or abscess without bleeding Disposition: HOME, SELF-CARE Condition: Stable Departure-Patient Inst. Decision time for Depature: 02:04 Referrals: ARMANI GODINEZ APRN (PCP/Family) Primary Care Physician Patient Instructions: Diverticulitis (DC) Add. Discharge Instructions: Tylenol 650 mg every 8 hours necessary for pain. Ibuprofen 600 mg every 8 hours necessary for pain. Hydrocodone 1 tablet every 6 hours necessary for breakthrough pain. Drink plenty of fluids and avoid spicy foods, greasy foods. Kinney diet such as bananas, rice, applesauce and toast. Ondansetron 1 tablet under the tongue every 6 hours as necessary for nausea and or vomiting. Flagyl 1 tablet 3 times a day with food for the next week. Ciprofloxacin 1 tablet twice a day with food for the next week. Return to the ER for significantly worsening symptoms or follow-up with your [facility] doctor as necessary to help manage symptoms outpatient. All discharge instructions reviewed with patient and/or family. Voiced understanding. Scripts Hydrocodone/Acetaminophen (Hydrocodone-Acetamin 5-325 mg) 1 Each Tablet 1 TAB PO Q6H PRN for PAIN-MODERATE (5-7), #12 TAB 0 Refills Prov: MEAGAN HDEZ 03/11/21 Metronidazole (Metronidazole) 500 Mg Tablet 500 MG PO TIDWM for 7 Days, #21 TAB 0 Refills Prov: MEAGAN HDEZ 03/11/21 Ciprofloxacin HCl (Ciprofloxacin HCl) 500 Mg Tablet 500 MG PO BID for 7 Days, #14 TAB 0 Refills Prov: MEAGAN HDEZ 03/11/21 Ondansetron (Ondansetron Odt) 4 Mg Tab.rapdis 4 MG PO Q6H PRN for NAUSEA/VOMITING, #12 TAB 0 Refills Prov: MEAGAN HDEZ 03/11/21 MEAGAN HDEZ Mar 11, 2021 00:34
[2021-03-11 00:58] LABS: ALBUMIN 3.9 GM/DL (3.2-4.5); BILIRUBIN,TOTAL 0.3 MG/DL (0.1-1.0); CALCIUM 8.7 MG/DL (8.5-10.1); CREATININE SERUM 0.92 MG/DL (0.60-1.30); POTASSIUM 3.8 MMOL/L (3.6-5.0); TOTAL PROTEIN 7.5 GM/DL (6.4-8.2)
[2021-03-11 01:05] LABS: LYMPHOCYTES % (MANUAL) 23 %; NEUTROPHILS % (MANUAL) 71 %
[2021-03-11 01:06] LABS: EOSINOPHILS % (MANUAL) 1 %; MONOCYTES % (MANUAL) 5 %
[2021-03-11 01:25] LABS: BILIRUBIN,URINE NEGATIVE (NEGATIVE); CLARITY,URINE CLEAR; COLOR,URINE YELLOW; GLUCOSE, URINE (UA) NEGATIVE (NEGATIVE); KETONES,URINE NEGATIVE (NEGATIVE); LEUKOCYTE ESTERASE ,URINE NEGATIVE (NEGATIVE); NITRITE,URINE NEGATIVE (NEGATIVE); PROTEIN,URINE NEGATIVE (NEGATIVE)
[2021-03-11 01:36] LABS: BACTERIA,URINE NEGATIVE /HPF
[2021-03-11] MEDS ORDERED: KETOROLAC 30 MG/ML VIAL IVP ONE (02:00)
[2021-03-11] MEDS ORDERED: cefTRIAXone 1 GM PRE-MIX 50 ML IV ONE (02:00)
[2021-03-11] MEDS ORDERED: CIPR500T5 PO (02:08)
[2021-03-11] MEDS ORDERED: ACHD5005 PO (02:08)
[2021-03-11] MEDS ORDERED: METR-145 PO (02:08)
[2021-03-11] MEDS ORDERED: ONDA4TAB11 PO (02:08)
== END 2021-03-11 02:48 | disposition home or self-care (01) ==
LOC: EDUNIT# 23:36 → ER 23:41
DX: K57.92 Diverticulitis of intestine, part unspecified, without perforation or abscess without bleeding (principal); Z87.442 Personal history of urinary calculi
CPT/HCPCS: 36415; 80053; 81000; 83690; 85007; 85027; 86141; 86308

== ENCOUNTER 2021-03-12 04:07 | Emergency (ER) | payer BC ==
[~2021-03-12] VITALS: Ht 177 cm; Wt 100.0 kg
[~2021-03-12 04:07] MED LIST changes: +ACHD5005 PO; +CIPR500T5 PO; +METR-145 PO; +ONDA4TAB11 PO
[2021-03-12] MEDS ORDERED: morphine INJ 10 MG/ML 1ML (SYR OR VIAL) IVP STA (04:52)
--- NOTE | 2021-03-12 04:58 | ED Abdominal Pain ---
General Chief Complaint: Abdominal/GI Problems Stated Complaint: L SIDE ABD PAIN Source of Information: Patient Exam Limitations: No Limitations (MEAGAN HDEZ) History of Present Illness Date Seen by Provider: Mar 12, 2021 Time Seen by Provider: 04:46 Initial Comments Patient to the ER by private conveyance from home with chief complaint of left- sided abdominal and flank pain history of diverticulitis and kidney stones. States the pain is unlike kidney stone pain. No diarrhea or bloody stools. No nausea or vomiting. He went home yesterday after an examination with ant ibiotics and hydrocodone but did not go to the pharmacy and apple picker the antibiotics or the pain medications and now states his pain is out of control. He has not taken anything for the pain after the 4 tablets of take-home hydrocodone were used. He is concerned that the diagnosis is missed and would like a CT scan of his abdomen and pelvis now. (MEAGAN HDEZ) Allergies and Home Medications Allergies Coded Allergies: No Known Drug Allergies (Unverified , 02/12/18) Patient Home Medication List Home Medication List Reviewed: Yes (MEAGAN HDEZ) Amoxicillin/Potassium Clav (Amox Tr-K Clv 875-125 mg Tab) 1 Each Tablet, 875 MG PO BID WITH MEALS Prescribed by: ALEX OKEEFE on 02/13/18 1740 Ciprofloxacin HCl (Ciprofloxacin HCl) 500 Mg Tablet, 500 MG PO BID Prescribed by: MEAGAN HDEZ on 03/11/21207 Dextroamphetamine/Amphetamine (Amphetamine Salts 30 mg Tablet) 30 Mg Tablet, 30 MG PO BID PRN for ATTENTION, (Reported) Entered as Reported by: SAMAN LANGFORD on 02/12/18 1208 Hydrocodone/Acetaminophen (Hydrocodone-Acetamin 5-325 mg) 1 Each Tablet, 1 TAB PO Q6H PRN for PAIN-MODERATE (5-7) Prescribed by: MEAGAN HDEZ on 03/11/21 020 Ibuprofen (Advil) 200 Mg Tablet, 400 MG PO Q8H PRN for PAIN-MILD, (Reported) Entered as Reported by: TOR RIDDLE on 02/12/18 1515 Metronidazole (Metronidazole) 500 Mg Tablet, 500 MG PO TIDWM Prescribed by: MEAGAN HDEZ on 03/11/21207 Ondansetron (Ondansetron Odt) 4 Mg Tab.rapdis, 4 MG PO Q6H PRN for LAURI SEA/VOMITING Prescribed by: MEAGAN HDEZ on 03/11/21 0208 Review of Systems Review of Systems Constitutional: No chills, No diaphoresis EENTM: No Blurred Vision, No Double Vision Respiratory: Denies Cough, Denies Shortness of Air Cardiovascular: Denies Chest Pain, Denies Edema Gastrointestinal: See HPI, Abdominal Pain; Denies Constipated, Denies Diarrhea, Denies Nausea Genitourinary: Denies Burning, Denies Discharge Musculoskeletal: No back pain, No joint pain Skin: No pruritus, No rash Psychiatric/Neurological: Denies Headache, Denies Numbness, Denies Paresthesia (MEAGAN HDEZ) All Other Systems Reviewed Negative Unless Noted: Yes (MEAGAN HDEZ) Past Ckwxrtj-Rqoanv-Pudsbl Hx Patient Social History Tobacco Use?: No Use of E-Cig and/or Vaping dev: No (MEAGAN HDEZ) Seasonal Allergies Seasonal Allergies: No (MEAGAN HDEZ) Past Medical History Surgeries: Yes (acl repair) Orthopedic Respiratory: No Cardiac: No Neurological: No Genitourinary: Yes Kidney Stones Gastrointestinal: No Musculoskeletal: No Endocrine: No HEENT: No Cancer: No Psychosocial: No Integumentary: No (MEAGAN HDEZ) Family Medical History CAD Under 55 Years Old, Diabetes (MEAGAN HDEZ) Physical Exam Vital Signs Vital Signs - First Documented 03/12/21 04:08 Pulse 86 Resp 16 B/P (MAP) 121/72 (88) Pulse Ox 98 O2 Delivery Room Air (MILO ZULETA MD) Vital Signs Capillary Refill : (MEAGAN HDEZ) Height/Weight/BMI Height: 5'8.00" Weight: 210lbs. 0.0oz. 95.756761vc; 31.00 BMI Method:Stated General Appearance: WD/WN, no apparent distress HEENT: normal ENT inspection, pharynx normal Neck: full range of motion, normal inspection Respiratory: no respiratory distress, no accessory muscle use Cardiovascular: normal peripheral pulses, regular rate, rhythm Peripheral Pulses: 2+ Radial Pulses (R), 2+ Radial Pulses (L) Gastrointestinal: normal bowel sounds, soft, tenderness (Left upper quadrant left flank) Neurologic/Psychiatric: alert, normal mood/affect, oriented x 3 Skin: normal color, warm/dry (MEAGAN HDEZ) Progress/Results/Core Measures Results/Orders Lab Results Laboratory Tests Test 03/12/21 04:35 Range/Units White Blood Count 18.4 H 4.3-11.0 10^3/uL Red Blood Count 5.00 4.30-5.52 10^6/uL Hemoglobin 14.4 13.3-17.7 g/dL Hematocrit 43 40-54 % Mean Corpuscular Volume 86 80-99 fL Mean Corpuscular Hemoglobin 29 25-34 pg Mean Corpuscular Hemoglobin Concent 33 32-36 g/dL Red Cell Distribution Width 12.3 10.0-14.5 % Platelet Count 363 130-400 10^3/uL Mean Platelet Volume 10.6 9.0-12.2 fL Immature Granulocyte % (Auto) 1 % Neutrophils (%) (Auto) 67 42-75 % Lymphocytes (%) (Auto) 22 12-44 % Monocytes (%) (Auto) 7 0-12 % Eosinophils (%) (Auto) 2 0-10 % Basophils (%) (Auto) 0 0-10 % Neutrophils # (Auto) 12.4 H 1.8-7.8 10^3/uL Lymphocytes # (Auto) 4.0 1.0-4.0 10^3/uL Monocytes # (Auto) 1.4 H 0.0-1.0 10^3/uL Eosinophils # (Auto) 0.3 0.0-0.3 10^3/uL Basophils # (Auto) 0.0 0.0-0.1 10^3/uL Immature Granulocyte # (Auto) 0.3 H 0.0-0.1 10^3/uL Neutrophils % (Manual) 63 % Lymphocytes % (Manual) 25 % Monocytes % (Manual) 10 % Eosinophils % (Manual) 2 % Blood Morphology Comment NORMAL Sodium Level 136 135-145 MMOL/L Potassium Level 4.0 3.6-5.0 MMOL/L Chloride Level 104 98-107 MMOL/L Carbon Dioxide Level 19 L 21-32 MMOL/L Anion Gap 13 5-14 MMOL/L Blood Urea Nitrogen 15 7-18 MG/DL Creatinine 0.80 0.60-1.30 MG/DL Estimat Glomerular Filtration Rate 111 BUN/Creatinine Ratio 19 Glucose Level 113 H 70-105 MG/DL Calcium Level 8.6 8.5-10.1 MG/DL Corrected Calcium 8.8 8.5-10.1 MG/DL Total Bilirubin 0.5 0.1-1.0 MG/DL Aspartate Amino Transf (AST/SGOT) 17 5-34 U/L Alanine Aminotransferase (ALT/SGPT) 35 0-55 U/L Alkaline Phosphatase 59 40-136 U/L C-Reactive Protein High Sensitivity 8.55 H 0.00-0.50 MG/DL Total Protein 6.8 6.4-8.2 GM/DL Albumin 3.7 3.2-4.5 GM/DL (MILO ZULETA MD) My Orders Orders - MILO ZULETA MD Ketorolac Injection (Toradol Injection) (03/12/21 07:45) Hydrocodone/Apap 5/325 Tablet (Lortab 5 (03/12/21 07:45) (MILO ZULETA MD) Medications Given in ED Current Medications Medications Dose Ordered Sig/Sherita Route Start Time Stop Time Status Last Admin Dose Admin Diatrizoate Meglum/ Diatrizoate Sod 120 ml ONCE ONCE PO 03/12/21 07:30 03/12/21 07:31 DC 03/12/21 07:18 25 ML Iohexol 100 ml ONCE ONCE IV 03/12/21 07:15 03/12/21 07:16 DC 03/12/21 07:18 100 ML Lactated Ringer's 1,000 ml @ 0 mls/hr Q0M ONCE IV 03/12/21 05:00 03/12/21 05:01 DC 03/12/21 05:14 0 MLS/HR Sodium Chloride 10 ml NEEDED PRN IV 03/12/21 07:15 03/12/21 07:18 10 ML Sodium Chloride 100 ml ONCE ONCE IV 03/12/21 07:15 03/12/21 07:16 DC 03/12/21 07:18 80 ML (MILO ZULETA MD) Vital Signs/I&O 03/12/21 04:08 Pulse 86 Resp 16 B/P (MAP) 121/72 (88) Pulse Ox 98 O2 Delivery Room Air (MILO ZULETA MD) Progress Progress Note : Time: 04:57 Progress Note Aseptic vital signs. He did receive Rocephin yesterday. We will get a CT of the abdomen and pelvis with IV contrast and oral contrast. Liter of fluids and morphine. (MEAGAN HDEZ) Progress Note : Progress Note Received the patient in signout pending CT. This showed acute uncomplicated diverticulitis. The patient received IV Toradol for pain control followed by an oral hydrocodone. Reassessed his abdominal exam and he continued to show no signs of peritonitis. I believe he is stable for discharge with outpatient follow-up. He was sent home with strict return precautions. I urged him to fill the prescriptions that were sent when he came to the emergency department previously. (MILO ZULETA MD) Diagnostic Imaging Diagonstic Imaging: CT Plain Films/CT/US/NM/MRI: abdomen, pelvis Comments [facility]. [place], [place] NAME: KEILY BEARDEN [facility] REC#: [id number] PT STATUS: DEP ER : 1975 PHYSICIAN: MEAGAN HDEZ MD ADMIT DATE: 03/12/21/ER Signed Date of Exam:03/12/21 CT ABDOMEN/PELVIS W PROCEDURE: CT abdomen and pelvis with contrast. TECHNIQUE: Multiple contiguous axial images were obtained through the abdomen and pelvis after administration of intravenous contrast. Auto Exposure Controls were utilized during the CT exam to meet ALARA standards for radiation dose reduction. All CT scans use one or more of the following dose optimizing techniques: automated exposure control, MA and/or KvP adjustment based on patient size and exam type or iterative reconstruction. Indication: Left lower quadrant pain for 3 days. Comparison: 01/25/2020. Discussion: The lung bases are well-aerated. Normal heart size. No pleural or pericardial fluid. The liver, gallbladder, pancreas, stomach, spleen, and adrenal glands are unremarkable. No renal stone, mass, hydronephrosis. The aorta is normal in caliber. Inflammatory changes noted along the descending colon in the setting of diverticular disease suggesting acute diverticulitis. There is no abscess or perforation identified. No obstruction or constipation. The appendix is normal. Bladder and prostate are unremarkable. No ascites or adenopathy. No acute osseous abnormality. Impression: 1. Acute uncomplicated diverticulitis of the descending colon. Dictated by: Dictated on workstation # [id number] Dict: 03/12/21725 Trans: 03/12/211511 MARIFER [id number] Interpreted by: KEILY LEVINE MD Electronically signed by: KEILY LEVINE MD 03/12/211511 Reviewed: Reviewed [place] Study, Reviewed by Me (MEAGAN HDEZ) Comments NAME: KEILY BEARDEN [facility] REC#: [id number] PT STATUS: REG ER : 1975 PHYSICIAN: MEAGAN HDEZ MD ADMIT DATE: 03/12/21/ER Draft Date of Exam:03/12/21 CT ABDOMEN/PELVIS W PROCEDURE: CT abdomen and pelvis with contrast. TECHNIQUE: Multiple contiguous axial images were obtained through the abdomen and pelvis after administration of intravenous contrast. Auto Exposure Controls were utilized during the CT exam to meet ALARA standards for radiation dose reduction. All CT scans use one or more of the following dose optimizing techniques: automated exposure control, MA and/or KvP adjustment based on patient size and exam type or iterative reconstruction. Indication: Left lower quadrant pain for 3 days. Comparison: 01/25/2020. Discussion: The lung bases are well-aerated. Normal heart size. No pleural or pericardial fluid. The liver, gallbladder, pancreas, stomach, spleen, and adrenal glands are unremarkable. No renal stone, mass, hydronephrosis. The aorta is normal in caliber. Inflammatory changes noted along the descending colon in the setting of diverticular disease suggesting acute diverticulitis. There is no abscess or perforation identified. No obstruction or constipation. The appendix is normal. Bladder and prostate are unremarkable. No ascites or adenopathy. No acute osseous abnormality. Impression: 1. Acute uncomplicated diverticulitis of the descending colon. Dictated on workstation # [id number] Dict: 03/12/21725 Trans: 03/12/21738 MARIFER [id number] Interpreted by: KEILY LEVINE MD Electronically signed by: (MILO ZULETA MD) Departure Impression Primary Impression: Diverticulitis Disposition: HOME, SELF-CARE Condition: Stable Departure-Patient Inst. Decision time for Depature: 07:45 (MILO ZULETA MD) Referrals: ARMANI GODINEZ APRN (PCP/Family) Primary Care Physician Patient Instructions: Diverticulitis Add. Discharge Instructions: You do have what is called uncomplicated diverticulitis. This just means that currently it is a small infection of your diverticula. If you take the antibiotics that were written for you, this should get better with time. Also take the pain medicine that were prescribed to the last and he came to the emergency department. You can take ibuprofen 600 mg every 6 hours on top of this. After 24 hours of being on the antibiotics if you develop fever, or the pain becomes much worse then I would want you to be seen again by a physician. Work/School Note: Work Release Form Date Seen in the Emergency Department: Mar 12, 2021 Return to Work: Mar 14, 2021 Restrictions: No Restrictions MEAGAN HDEZ Mar 12, 2021 04:58 MILO ZULETA MD Mar 12, 2021 07:47
[2021-03-12] MEDS ORDERED: LACTATED RINGERS 1,000 ML IV ONE (05:00)
[2021-03-12 05:01] LABS: BASOPHILS % (AUTO) 0 % (0-10); EOSINOPHILS # (AUTO) 0.3 10^3/uL (0.0-0.3); EOSINOPHILS % (AUTO) 2 % (0-10); HEMATOCRIT 43 % (40-54); HEMOGLOBIN 14.4 g/dL (13.3-17.7); LYMPHOCYTES % (AUTO) 22 % (12-44); MEAN CORPUSCULAR HEMOGLOBIN 29 pg (25-34); MEAN CORPUSCULAR HGB CONC 33 g/dL (32-36); MEAN CORPUSCULAR VOLUME 86 fL (80-99); MEAN PLATELET VOLUME 10.6 fL (9.0-12.2); MONOCYTES # (AUTO) 1.4 10^3/uL (0.0-1.0); MONOCYTES % (AUTO) 7 % (0-12); NEUTROPHILS # (AUTO) 12.4 10^3/uL (1.8-7.8); NEUTROPHILS % (AUTO) 67 % (42-75); PLATELET COUNT 363 10^3/uL (130-400); WHITE BLOOD COUNT 18.4 10^3/uL (4.3-11.0)
[2021-03-12 05:15] LABS: ALBUMIN 3.7 GM/DL (3.2-4.5); BILIRUBIN,TOTAL 0.5 MG/DL (0.1-1.0); CALCIUM 8.6 MG/DL (8.5-10.1); CREATININE SERUM 0.8 MG/DL (0.60-1.30); TOTAL PROTEIN 6.8 GM/DL (6.4-8.2)
[2021-03-12 05:59] LABS: EOSINOPHILS % (MANUAL) 2 %; LYMPHOCYTES % (MANUAL) 25 %; MONOCYTES % (MANUAL) 10 %; NEUTROPHILS % (MANUAL) 63 %
[2021-03-12 06:00] LABS: RBC MORPH NORMAL
[2021-03-12] MEDS ORDERED: CATHETER FLUSH 10 ML SYR IV PRN (07:15)
[2021-03-12] MEDS ORDERED: NS 100 ML (IVPB) BAG IV ONE (07:15)
[2021-03-12] MEDS ORDERED: HOLD METFORMIN - RECEIVED CONTRAST 20 ML VIAL IV SCH (07:15)
[2021-03-12] MEDS ORDERED: IOHEXOL 350 MG/ML 100 ML (OMNIPAQUE 350) VIAL IV ONE (07:15)
[2021-03-12] MEDS ORDERED: DIATRIZOATE MEGLUM/SODIUM 37% 120 ML (GASTROGRAFIN) PO ONE (07:30)
--- NOTE | 2021-03-12 07:40 | Diagnostic Imaging Report ---
PROCEDURE: CT abdomen and pelvis with contrast. TECHNIQUE: Multiple contiguous axial images were obtained through the abdomen and pelvis after administration of intravenous contrast. Auto Exposure Controls were utilized during the CT exam to meet ALARA standards for radiation dose reduction. All CT scans use one or more of the following dose optimizing techniques: automated exposure control, MA and/or KvP adjustment based on patient size and exam type or iterative reconstruction. Indication: Left lower quadrant pain for 3 days. Comparison: 01/25/2020. Discussion: The lung bases are well-aerated. Normal heart size. No pleural or pericardial fluid. The liver, gallbladder, pancreas, stomach, spleen, and adrenal glands are unremarkable. No renal stone, mass, hydronephrosis. The aorta is normal in caliber. Inflammatory changes noted along the descending colon in the setting of diverticular disease suggesting acute diverticulitis. There is no abscess or perforation identified. No obstruction or constipation. The appendix is normal. Bladder and prostate are unremarkable. No ascites or adenopathy. No acute osseous abnormality. Impression: 1. Acute uncomplicated diverticulitis of the descending colon. Dictated by: Dictated on workstation # [id number]
[2021-03-12] MEDS ORDERED: KETOROLAC 30 MG/ML VIAL ONE (07:43)
[2021-03-12] MEDS ORDERED: HYDROcodone/APAP 5 MG/325 MG (LORTAB) TAB PO ONE (07:45)
[2021-03-12] MEDS ORDERED: KETOROLAC 15 MG/ML VIAL IVP ONE (07:45)
[2021-03-12 07:57] VITALS: BP 95/77
== END 2021-03-12 07:57 | disposition home or self-care (01) ==
LOC: EDUNIT# 04:07 → ER 04:10
DX: K57.32 Diverticulitis of large intestine without perforation or abscess without bleeding (principal)
CPT/HCPCS: 36415; 74177; 80053; 85007; 85027; 86141

== ENCOUNTER 2021-04-20 09:09 | Outpatient (CLI) | payer BC ==
[~2021-04-20] VITALS: Ht 172 cm; Wt 102.0 kg
== END 2021-04-20 15:30 | disposition home or self-care (01) ==
LOC: PREOP 09:09
PROVIDERS: ATTEND Surgery
DX: Z01.818 Encounter for other preprocedural examination (principal)

== ENCOUNTER 2021-04-26 11:40 | Day surgery (SDC) | payer BC ==
[~2021-04-26] VITALS: Ht 172 cm; Wt 102.0 kg
[2021-04-26] MEDS ORDERED: LACTATED RINGERS 1,000 ML IV ONE (11:45)
[2021-04-26 12:00] VITALS: BP 136/91
--- NOTE | 2021-04-26 12:12 | Progress Note-Pre Operative ---
Pre-Operative Progress Note H&P Reviewed The H&P was reviewed, patient examined and no changes noted. Date Seen by Provider: Apr 26, 2021 Time Seen by Provider: 12:00 Date H&P Reviewed: Apr 26, 2021 Time H&P Reviewed: 12:00 Pre-Operative Diagnosis: hx diverticulitis YVON COOK MD Apr 26, 2021 12:12
--- NOTE | 2021-04-26 12:13 | Discharge Inst-Surgical ---
D/C Lap Instructions-JOYCE Follow Up Appt in 2 weeks Activity as tolerated High Fiber Diet 25g or more per day Avoid Alcohol, Caffeine, Spicy [place] and Acid foods. Drink 64 fluid oz or more of fluids per day. Symptoms to Report: Fever over 101 degree F, Nausea/Vomiting If any problems/questions: Contact your physician or go to Emergency Room YVON COOK MD Apr 26, 2021 12:13
[2021-04-26] MEDS ORDERED: ONDANSETRON 4 MG/2 ML (SDV) Z0FRAN IVP PRN (12:15)
[2021-04-26] MEDS ORDERED: ONDANSETRON 4 MG (ZOFRAN) ORAL DISSOLVE TAB PO PRN (12:15)
[2021-04-26] MEDS ORDERED: PROPOFOL INJECTION 50 ML IV ONE ×2 (13:06→13:22)
[2021-04-26] MEDS ORDERED: MIDAZOLAM 2 MG/2 ML (VERSED) VIAL ONE (13:06)
[2021-04-26] MEDS ORDERED: LIDOCAINE JELLY 2% 6 ML SYRINGE ONE (13:16)
[2021-04-26] MEDS ORDERED: KETAMINE 50 MG/5 ML SYRINGE ONE (13:24)
[2021-04-26 13:35] VITALS: BP 124/72
--- NOTE | 2021-04-26 13:41 | Progress Note-Post Operative ---
Post-Operative Progess Note Surgeon (s)/County Tax Assessor (s) Surgeon YVON COOK MD County Tax Assessor: none Pre-Operative Diagnosis hx diverticulitis Post-Operative Diagnosis moderate sigmoid diverticulosis. Procedure & Operative Findings Date of Procedure 04/26/21 Procedure Performed/Findings colonoscopy Anesthesia Type mac Estimated Blood Loss Estimated blood loss (mL): minimal Specimens/Packing Specimens Removed none YVON COOK MD Apr 26, 2021 13:41
[2021-04-26 13:42] VITALS: BP 135/68
[2021-04-26 14:05] VITALS: BP 139/60
--- NOTE | 2021-04-26 14:15 | Anesthesia-General Post-Op ---
MAC Patient Condition Mental Status/LOC: Same as Preop Cardiovascular: Satisfactory Nausea/Vomiting: Absent Respiratory: Satisfactory Pain: Controlled Complications: Absent Post Op Complications Complications None Follow Up Care/Instructions Patient Instructions None needed. Anesthesiology Discharge Order Discharge Order Patient is doing well, no complaints, stable vital signs, no apparent adverse anesthesia problems. No complications reported per nursing. RENETTA GROVER CRNA Apr 26, 2021 14:15
[2021-04-26] MEDS ORDERED: LACTATED RINGERS 1,000 ML IV STA (15:47)
--- NOTE | 2021-04-26 17:56 | OPERATIVE REPORT ---
DATE OF SERVICE: 04/26/2021 ATTENDING SLATE CUTTER OPERATOR: Irma Pires APRN. PREOPERATIVE DIAGNOSIS: History of sigmoid diverticulitis. POSTOPERATIVE DIAGNOSIS: Moderate sigmoid diverticulosis. PROCEDURE: Colonoscopy. SURGEON: Yvon Cook MD ANESTHESIA: Monitored anesthesia care. ESTIMATED BLOOD LOSS: Minimal. FINDINGS: Same as postoperative diagnoses. DISPOSITION: The patient tolerated the procedure well. INDICATIONS: The patient is a 45-year-old male who developed pain in the left lower abdominal quadrant approximately 6 weeks ago, which was sharp in nature. He states that this was severe. He presented to the Emergency Department where a CT scan was performed, which did show inflammation of the sigmoid colon along with diverticula consistent with diverticulitis. He has not had a colonoscopy up to this point in his life. He does not report any red blood per rectum nor any dark tarry stools and also does not report any family history of colon cancer. DESCRIPTION OF PROCEDURE: The patient was brought to the endoscopy suite, laid in the left lateral decubitus position. After adequate IV pain and sedative medications and monitored anesthesia care, a digital rectal examination was performed. No significant hemorrhoids identified. Normal sphincter tone was felt and there were no palpable masses. Prostate gland was palpable and appeared normal. The endoscope was then intubated to the anus and rectum gently insufflated. The endoscope was then advanced through the valves of Miller of the rectum with no polyps or any neoplasms identified. We then proceeded to sigmoid colon where there were no inflammatory changes. There was moderate sigmoid diverticulosis identified. No neoplasms. The endoscope was then advanced to the remainder of the descending, transverse and ascending colon to the cecum, which were normal. No other lesions identified. The endoscope was then slowly withdrawn while taking a second look and suctioning of residual air with no additional findings. The patient tolerated the procedure well. We will recommend the necessary lifestyle and dietary accommodation including the addition of a fiber supplement, which should equal or exceed 30 grams daily as well as significant amounts of water to promote soft stools on a daily basis. If he is asymptomatic, he does not need another colonoscopy for another 10 years. Job ID: [id number] DocumentID: [id number] Dictated Date: 04/26/2021 13:34:28 Bag Machine Adjuster Date: 04/26/2021 17:55:07 Dictated By: YVON COOK MD
== END 2021-04-26 14:12 | disposition home or self-care (01) ==
LOC: ENDO 11:40
PROVIDERS: ATTEND Surgery
DX: Z12.11 Encounter for screening for malignant neoplasm of colon (principal); K57.30 Diverticulosis of large intestine without perforation or abscess without bleeding

== ENCOUNTER → 2022-10-30 | Outpatient (CLI) | payer BC, SELFPAY ==
--- NOTE | 2022-10-30 19:10 | Diagnostic Imaging Report ---
EXAMINATION: CT calcium scoring without contrast. TECHNIQUE: Multiple contiguous axial images were obtained through the chest without the use of intravenous contrast for purposes of calcium scoring. All CT scans use one or more of the following dose optimizing techniques: automated exposure control, MA and/or KvP adjustment based on patient size and exam type or iterative reconstruction. HISTORY: Hyperlipidemia COMPARISON: None available. FINDINGS: The calculated coronary artery calcium score is 16. Visualized portions of the lungs are clear. Heart size is normal. No pericardial effusion. Aorta is normal in caliber. No lymphadenopathy is seen. There are no suspicious osseus lesions. IMPRESSION: 1. Calculated coronary artery calcium score of 16 Dictated by: Dictated on workstation # [id number]
== END ==
LOC: RAD 14:15
PROVIDERS: ATTEND Nurse Practitioner Family
DX: Z13.6 Encounter for screening for cardiovascular disorders (principal); E78.5 Hyperlipidemia, unspecified; E66.9 Obesity, unspecified; Z82.49 Family history of ischemic heart disease and other diseases of the circulatory system
CPT/HCPCS: 75571